=== PATIENT | male | born 1985 | race Caucasian/White ===

== ENCOUNTER 2023-02-08 15:04 | Outpatient (CLI) | payer BC, OTHER | END 2023-02-08 15:05 | disposition short-term general hospital (02) | LOC: EMS 15:04 | DX: S09.90XA Unspecified injury of head, initial encounter (principal); R41.3 Other amnesia; M54.2 Cervicalgia; V28.09XA Other motorcycle driver injured in noncollision transport accident in nontraffic accident, initial encounter; Y93.I9 Activity, other involving external motion; Y92.39 Other specified sports and athletic area as the place of occurrence of the external cause | CPT/HCPCS: A0425; A0429 ==